=== PATIENT | female | born 1975 | race African-American/Black ===

== ENCOUNTER 2019-02-14 13:03 | Emergency (ER) | payer OTHER ==
[~2019-02-14] VITALS: Ht 165.1 cm; Wt 108.0 kg
[~2019-02-14 13:03] MED LIST: ABILIFY; ABILIFY15 MG PO; AMLODIPINE BESY10 MG PO; ATIVAN1 MG; BACTRIM DS TAB1 EACH PO; CLARITIN10 MG PO; CLONAZEPAM 1 MG1 M1 PO; COZAAR 25 MG TA25 M1 PO; CRANBERRY PLUS1 EAC1; EXCEDRIN CAPLE1 EACH PO; FLAGYL500 MG PO; HALDOL DECAN50 MG/M1 IM; HYDROCHLOROTHIA25 M1 PO; HYDROCHLOROTHIA25 M2 PO; IBUPROFEN 600600 M1 PO; IBUPROFEN 800800 M1 PO; INVEGA 3 MG3 MG PO; INVEGA SUS117 MG/0.7 IM; INVEGA SUS156 MG/1 M IM; LISINOPRIL20 MG PO; MIRALAX255 GM PO; TOPAMAX50 MG PO; ULTRAM 50MG TAB50 MG PO; UNICOMPLEX M TA1 TA1; ZPAK PO
[2019-02-14 13:42] VITALS: BP 164/96
== END 2019-02-14 13:56 | disposition home or self-care (01) ==
LOC: ER 13:03
DX: Z02.89 Encounter for other administrative examinations (principal); I10 Essential (primary) hypertension; F31.9 Bipolar disorder, unspecified

== ENCOUNTER 2021-02-22 19:50 | Emergency (ER) | payer OTHER ==
[~2021-02-22] VITALS: Ht 167.6 cm; Wt 122.0 kg
[2021-02-22] MEDS ORDERED: FLONASE 0.05%50 MCG NARES (20:02)
[2021-02-22 20:45] LABS: URINE BILIRUBIN NEGATIVE (Negative); URINE BLOOD NEGATIVE (Negative); URINE CLARITY CLEAR; URINE COLOR YELLOW; URINE GLUCOSE-RANDOM* NEGATIVE (Negative); URINE KETONES TRACE (Negative); URINE NITRITE-REFLEX NEGATIVE (Negative); URINE PROTEIN (DIPSTICK) NEGATIVE (Negative); URINE SPECIFIC GRAVITY >= 1.030 (1.005-1.035); URINE UROBILINOGEN 0.2 E.U./dl (0.2-1.0)
[2021-02-22 20:46] LABS: URINE LEUKOCYTES-REFLEX 1+ (Negative)
[2021-02-22 20:59] LABS: BACTERIA-REFLEX 1-9 Few /HPF (None Seen); CASTS None Seen /LPF (None Seen); CRYSTALS None Seen /LPF (None Seen); MUCUS 0-3 Light strn/LPF (None Seen); SQUAMOUS 0-3 Few /LPF (0-3); URINE RBC 1-2 Rare /HPF (NONE SEEN); URINE WBC-REFLEX 0-5 Rare /HPF (0-5)
[2021-02-22] MEDS ORDERED: CEPHALEXIN500 MG PO (21:04)
[2021-02-22 21:58] VITALS: BP 110/72
== END 2021-02-22 21:58 | disposition home or self-care (01) ==
LOC: ER 19:50
PROVIDERS: Physician Assistant
DX: N39.0 Urinary tract infection, site not specified (principal); I10 Essential (primary) hypertension

== ENCOUNTER 2021-02-24 19:53 | Emergency (ER) | payer OTHER ==
[~2021-02-24] VITALS: Ht 167.6 cm; Wt 122.0 kg
[~2021-02-24 19:53] MED LIST changes: +CEPHALEXIN500 MG PO; +FLONASE 0.05%50 MCG NARES
[2021-02-24] MEDS ORDERED: ERYTHROMYCIN E3.5 G2 OPHTHALMIC (20:46)
[2021-02-24 20:49] VITALS: BP 101/71
== END 2021-02-24 20:50 | disposition home or self-care (01) ==
LOC: ER 19:53
DX: H57.89 Other specified disorders of eye and adnexa (principal); H10.31 Unspecified acute conjunctivitis, right eye; I10 Essential (primary) hypertension; Z79.899 Other long term (current) drug therapy; Z79.82 Long term (current) use of aspirin

== ENCOUNTER 2021-04-08 08:30 | Emergency (ER) | payer OTHER ==
[~2021-04-08] VITALS: Ht 170.2 cm; Wt 111.6 kg
[~2021-04-08 08:30] MED LIST changes: +ERYTHROMYCIN E3.5 G2 OPHTHALMIC
[2021-04-08 08:31] VITALS: BP 133/86
[2021-04-08] MEDS ORDERED: NAPROSYN500 MG PO (08:50)
== END 2021-04-08 09:15 | disposition home or self-care (01) ==
LOC: ER 08:30
DX: R51.9 Headache, unspecified (principal); I10 Essential (primary) hypertension; Z79.82 Long term (current) use of aspirin; Z79.899 Other long term (current) drug therapy

== ENCOUNTER 2021-04-15 15:27 | Emergency (ER) | payer OTHER ==
[~2021-04-15] VITALS: Ht 167.6 cm; Wt 116.1 kg
[~2021-04-15 15:27] MED LIST changes: +NAPROSYN500 MG PO
[2021-04-15 16:11] VITALS: BP 120/75
== END 2021-04-15 17:12 | disposition home or self-care (01) ==
LOC: ER 15:27
DX: H53.19 Other subjective visual disturbances (principal); I10 Essential (primary) hypertension; F31.9 Bipolar disorder, unspecified; Z79.1 Long term (current) use of non-steroidal anti-inflammatories (NSAID); Z79.891 Long term (current) use of opiate analgesic; Z79.899 Other long term (current) drug therapy; Z79.82 Long term (current) use of aspirin; Z91.09 Other allergy status, other than to drugs and biological substances

== ENCOUNTER 2021-05-13 16:13 | Emergency (ER) | payer OTHER ==
[~2021-05-13] VITALS: Ht 167.6 cm; Wt 111.1 kg
[2021-05-13 16:40] VITALS: BP 136/85
[2021-05-13 17:52] LABS: URINE BILIRUBIN NEGATIVE (Negative); URINE BLOOD TRACE (Negative); URINE CLARITY CLEAR; URINE COLOR YELLOW; URINE GLUCOSE-RANDOM* NEGATIVE (Negative); URINE KETONES NEGATIVE (Negative); URINE LEUKOCYTES-REFLEX NEGATIVE (Negative); URINE NITRITE-REFLEX NEGATIVE (Negative); URINE PROTEIN (DIPSTICK) NEGATIVE (Negative); URINE SPECIFIC GRAVITY >= 1.030 (1.005-1.035); URINE UROBILINOGEN 0.2 E.U./dl (0.2-1.0)
== END 2021-05-13 18:55 | disposition home or self-care (01) ==
LOC: ER 16:13
PROVIDERS: Nurse Practitioner
DX: R10.31 Right lower quadrant pain (principal); I10 Essential (primary) hypertension; F31.9 Bipolar disorder, unspecified; Z79.82 Long term (current) use of aspirin; Z79.891 Long term (current) use of opiate analgesic; Z79.899 Other long term (current) drug therapy; Z91.09 Other allergy status, other than to drugs and biological substances